=== PATIENT | female | born 1985 | race Two or more races ===

== ENCOUNTER 2018-02-19 00:01 | Emergency (ER) | payer BC ==
[~2018-02-19] VITALS: Ht 170.2 cm; Wt 127.0 kg
[2018-02-19 00:20] VITALS: BP 132/89
[2018-02-19] MEDS ORDERED: Lidocaine 2% Visc 15ml soln ORAL ONE (00:30)
--- NOTE | 2018-02-19 00:33 | Emergency Room Report ---
History of Present Illness General Chief Complaint: Sore Throat Source: Patient Present Illness HPI Patient presents with a sore throat. It was severe yesterday. She also has some tongue pain and redness there. She has muscle aches. She's not taking any medication at home. She is able to drink fluids now. Last week she had some nausea and diarrhea. She denies any cough. She denies dysuria and doesn' t believe she is at this time. Her periods are irregular. Pain rated 6/10, constant and worse with swallowing, burning. No headache. Able to tolerate oral fluids. No rashes. 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 Last Menstrual Period: 01/21/18 Now: No Reviewed Nursing Documentation: PMH: Agreed; PSxH: Agreed Nursing Documentation-PMH Past Medical History: No History, Except For History Of Psychiatric Problem: Yes - depression Review of Systems Constitutional: Reports: see HPI Eye: Denies: nose congestion, discharge ENT: Reports: see HPI Respiratory: Reports: see HPI Gastrointestinal: Reports: see HPI Skin: Denies: rash Neurological: Reports: see HPI Physical Exam Vital Signs Date Time Temp Pulse Resp B/P (MAP) Pulse Ox O2 Delivery O2 Flow Rate FiO2 02/19/18 00:02 98.3 93 16 132/89 96 Room Air 98.2 Sp02 EP Interpretation: reviewed, normal General Appearance: well appearing, no apparent distress Head: normocephalic, atraumatic ENT: moist mucus membranes, pharyngeal erythema, other - tongue lesion also, no exudates Neck: full range of motion, supple Respiratory: chest non-tender, lungs clear, normal breath sounds, no respiratory distress, speaking full sentences Cardiovascular #1: regular rate, rhythm Cardiovascular #2: 2+ radial (R) Gastrointestinal: non tender, overweight Musculoskeletal: gait/station normal, normal range of motion Neurologic: alert, oriented x3, normal gait, grossly normal Psychiatric: mood/affect normal Skin: no rash Medical Decision Making Diagnostic Impression: Primary Impression: Sore throat Additional Impression: Aphthous ulcer ER Course Patient presents with a sore throat tongue lesion. Differential includes strep , viral, aphthous stomatitis amongst others. The appearance is against a strep at this time along with the tongue lesion. She'll be treated with Tylenol, prednisone and viscous lidocaine here. Antibiotics are not indicated at this time. Improved but not like viscous lidocaine. Pain reported decreased. Discussed outpatient treatment plan. Patient stable for outpatient observation and treatment. Last Vital Signs Date Time Temp Pulse Resp B/P (MAP) Pulse Ox O2 Delivery O2 Flow Rate FiO2 02/19/18 00:52 98.2 93 16 132/89 96 Room Air 208.8 Status: improved Disposition: HOME, SELF-CARE Condition: Improved Scripts Prednisone* (PREDNISONE*) 20 Mg Tablet 20 MG ORAL DAILY, #3 TAB Prov: Juanjo Bennett M.D. 02/19/18 Juanjo Bennett M.D. Feb 19, 2018 00:33
[2018-02-19] MEDS ORDERED: PREDNISONE20 MG ORAL (00:46)
[2018-02-19 00:52] VITALS: BP 132/89
== END 2018-02-19 00:55 | disposition home or self-care (01) ==
LOC: EMR 00:39
DX: J02.9 Acute pharyngitis, unspecified (principal); K12.0 Recurrent oral aphthae; F32.9 Major depressive disorder, single episode, unspecified
CPT/HCPCS: 99282; J7512

== ENCOUNTER 2020-04-02 01:08 | Emergency (ER) | payer BC, OTHER ==
[~2020-04-02] VITALS: Ht 170.2 cm; Wt 131.5 kg
[~2020-04-02 01:08] MED LIST: PREDNISONE20 MG ORAL
[2020-04-02 01:20] VITALS: BP 135/81
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
--- NOTE | 2020-04-02 01:45 | NUR ---
ED Nurse Note: BLOOD DRAWN; SENT DOWN TO LAB.
[2020-04-02 01:50] VITALS: BP 133/85
--- NOTE | 2020-04-02 01:50 | NUR ---
ER DISCHARGE NOTE: Patient is cleared to be discharged per ERMD, pt is aox4, on room air, with stable vital signs. pt was given dc instructions, pt was able to verbalize understanding, pt id band removed. pt is able to ambulate with steady gait. pt took all belongings and informed to follow up with her lab results from today's ED visit.
== END 2020-04-02 01:50 | disposition home or self-care (01) ==
LOC: EMR 01:39
DX: Z77.21 Contact with and (suspected) exposure to potentially hazardous body fluids (principal)
CPT/HCPCS: 86703; 86803; 87517; 99283